=== PATIENT | male | born 1955 | race Caucasian/White ===

== ENCOUNTER 2017-07-13 10:04 | Emergency (ER) | payer MEDICARE, MEDICAID ==
[2017-07-13] MEDS: predniSONE 20 MG TAB PO (11:03)
[2017-07-13] MEDS: ALBUTEROL 0.083% (NEB) 2.5 MG/3 ML AMP NEB (11:09)
[2017-07-13] MEDS: IPRATROPIUM (NEB) 0.5 MG/2.5 ML AMP NEB (11:09)
[2017-07-13 11:16] LABS: ADD MAN DIFF? NO
[2017-07-13 11:25] LABS: BASOPHIL # 0.1 10^3/ul (0.0-0.1); BASOPHILS % 0.7 % (0.0-2.0); EOSINOPHILS # 0.2 10^3/ul (0.0-0.5); EOSINOPHILS % 3.1 % (0.0-7.0); HEMATOCRIT 50.9 % (42.0-52.0); HEMOGLOBIN 17.1 g/dl (14.0-18.0); LYMPHOCYTES # 1.5 10^3/ul (0.8-2.9); LYMPHOCYTES % 21.4 % (15.0-51.0); MEAN CORPUSCULAR HEMOGLOBIN 31.3 pg (29.0-33.0); MEAN CORPUSCULAR HGB CONC 33.6 g/dl (32.0-37.0); MEAN CORPUSCULAR VOLUME 93.1 fl (82.0-101.0); MEAN PLATELET VOLUME 11.3 fl (7.4-10.4); MONOCYTE # 0.7 10^3/ul (0.3-0.9); MONOCYTES % 9.6 % (0.0-11.0); NEUTROPHIL # 4.6 10^3/ul (1.6-7.5); NEUTROPHILS % 64.5 % (39.0-77.0); PLATELET COUNT 128 10^3/UL (140-415); RED BLOOD COUNT 5.47 10^6/ul (4.70-6.10); RED CELL DISTRIBUTION WIDTH 14.4 % (11.5-14.5)
[2017-07-13 11:25] LABS: WHITE BLOOD COUNT 7.2 10^3/ul (4.8-10.8)
[2017-07-13 13:16] LABS: ANION GAP 17 (8-16); BLOOD UREA NITROGEN 28 mg/dl (7-20); CALCIUM 9.1 mg/dl (8.4-10.2); CARBON DIOXIDE 26 mmol/L (21-31); CHLORIDE 104 mmol/L (97-110); CREATININE 1.68 mg/dl (0.61-1.24); GLUCOSE 140 mg/dl (70-220); POTASSIUM 4.7 mmol/L (3.5-5.1); SODIUM 142 mmol/L (135-144)
[2017-07-13 13:29] LABS: TROPONIN-I < 0.012 ng/ml (0.00-0.12)
== END 2017-07-13 13:05 | disposition home or self-care (01) ==
LOC: E/R 10:04
DX: J45.901 Unspecified asthma with (acute) exacerbation (principal); I25.10 Atherosclerotic heart disease of native coronary artery without angina pectoris; I10 Essential (primary) hypertension; E11.9 Type 2 diabetes mellitus without complications; F17.210 Nicotine dependence, cigarettes, uncomplicated; R05 Cough; Z79.4 Long term (current) use of insulin; Z79.82 Long term (current) use of aspirin
CPT/HCPCS: 36415; 71045; 80048; 84484; 85025; 93005; 94664; 99285-25

== ENCOUNTER 2018-04-19 15:17 | Emergency (ER) | payer MEDICARE, MEDICAID ==
[2018-04-19] MEDS: morphine 4 MG/ML VIAL IV (18:10)
[2018-04-19] MEDS: ONDANSETRON (ODT) 4 MG TAB ODT (18:10)
[2018-04-19] MEDS: SOD CHLORIDE 0.9% 1,000 ML IV (18:10)
[2018-04-19 18:11] LABS: ADD MAN DIFF? NO
[2018-04-19 18:13] LABS: WHITE BLOOD COUNT 9.2 10^3/ul (4.8-10.8)
[2018-04-19 18:13] LABS: BASOPHILS % 0.3 % (0.0-2.0); EOSINOPHILS # 0.1 10^3/ul (0.0-0.5); EOSINOPHILS % 1.3 % (0.0-7.0); HEMATOCRIT 50.9 % (42.0-52.0); HEMOGLOBIN 16.7 g/dl (14.0-18.0); LYMPHOCYTES # 1.5 10^3/ul (0.8-2.9); LYMPHOCYTES % 16.7 % (15.0-51.0); MEAN CORPUSCULAR HEMOGLOBIN 30.9 pg (29.0-33.0); MEAN CORPUSCULAR HGB CONC 32.8 g/dl (32.0-37.0); MEAN CORPUSCULAR VOLUME 94.3 fl (82.0-101.0); MEAN PLATELET VOLUME 10.5 fl (7.4-10.4); MONOCYTE # 0.8 10^3/ul (0.3-0.9); MONOCYTES % 8.5 % (0.0-11.0); NEUTROPHIL # 6.6 10^3/ul (1.6-7.5); NEUTROPHILS % 72.5 % (39.0-77.0); PLATELET COUNT 147 10^3/UL (140-415); RED CELL DISTRIBUTION WIDTH 15.1 % (11.5-14.5)
[2018-04-19 18:21] LABS: ADD UMIC YES; UR ASCORBIC ACID NEGATIVE (NEGATIVE); UR BACTERIA FEW /HPF (NONE SEEN); UR BILIRUBIN (Dip) NEGATIVE (NEGATIVE); UR BLOOD (Dip) NEGATIVE (NEGATIVE); UR CLARITY SLIGHTLY CLOUDY (CLEAR); UR COLOR YELLOW (YELLOW); UR GLUCOSE (Dip) 3+ mg/dL (NEGATIVE); UR KETONES (Dip) NEGATIVE (NEGATIVE); UR LEUKOCYTE ESTERASE (Dip) NEGATIVE Leu/ul (NEGATIVE); UR MUCUS FEW /HPF (NONE SEEN); UR NITRITE (Dip) NEGATIVE (NEGATIVE); UR RBC 1 /HPF (0-5); UR SPECIFIC GRAVITY (Dip) 1.027 (1.003-1.030); UR TOTAL PROTEIN (Dip) 3+ mg/dl (NEGATIVE); UR UROBILINOGEN (Dip) NEGATIVE (NEGATIVE); UR WBC 4 /HPF (0-5)
[2018-04-19 18:31] LABS: ALANINE AMINOTRANSFERASE 15 IU/L (13-69); ALBUMIN 4.2 g/dl (3.3-4.9); ALBUMIN/GLOBULIN RATIO 1.27; ALKALINE PHOSPHATASE 73 IU/L (42-121); ANION GAP 12 (5-13); ASPARTATE AMINO TRANSFERASE 21 IU/L (15-46); BILIRUBIN,INDIRECT 0.7 mg/dl (0-1.1); BILIRUBIN,TOTAL 0.7 mg/dl (0.2-1.3); BLOOD UREA NITROGEN 33 mg/dl (7-20); CALCIUM 9.4 mg/dl (8.4-10.2); CARBON DIOXIDE 26 mmol/L (21-31); CHLORIDE 102 mmol/L (97-110); CREATININE 2.09 mg/dl (0.61-1.24); Estimated GFR 32 mL/min (>60); GLUCOSE 129 mg/dl (70-220); POTASSIUM 4.7 mmol/L (3.5-5.1); SODIUM 140 mmol/L (135-144); TOTAL PROTEIN 7.5 g/dl (6.1-8.1)
[2018-04-19 18:38] LABS: PROTIME 14.4 Sec (11.9-14.9); PT RATIO 1.1
[2018-04-19] MEDS: APIXABAN 5 MG TABLET PO (20:33)
== END 2018-04-19 20:46 | disposition home or self-care (01) ==
LOC: FTE 15:17
DX: I82.402 Acute embolism and thrombosis of unspecified deep veins of left lower extremity (principal); I10 Essential (primary) hypertension; E11.9 Type 2 diabetes mellitus without complications; F17.210 Nicotine dependence, cigarettes, uncomplicated; Z79.82 Long term (current) use of aspirin; Z79.84 Long term (current) use of oral hypoglycemic drugs
CPT/HCPCS: 36415; 73562; 80053; 81001; 85025; 85610; 85730; 93971; 96374; 99285-25

== ENCOUNTER 2019-01-30 10:20 | Inpatient (IN) | payer MEDICARE, MEDICAID ==
[2019-01-30] MEDS: ALBUTEROL 0.083% (NEB) 2.5 MG/3 ML AMP HHN (10:37)
[2019-01-30] MEDS: IPRATROPIUM (NEB) 0.5 MG/2.5 ML AMP INH (10:37)
[2019-01-30] MEDS: SOD CHLORIDE 0.9% 1,000 ML IV (10:42)
[2019-01-30] MEDS: METHYLPREDNISOLONE 125 MG INJ IV (10:42)
[2019-01-30 11:11] LABS: ADD MAN DIFF? NO
[2019-01-30 11:15] LABS: BASOPHILS % 0.4 % (0.0-2.0); EOSINOPHILS # 0.1 10^3/ul (0.0-0.5); EOSINOPHILS % 1.4 % (0.0-7.0); HEMATOCRIT 58.4 % (42.0-52.0); HEMOGLOBIN 17.4 g/dl (14.0-18.0); LYMPHOCYTES # 1.2 10^3/ul (0.8-2.9); LYMPHOCYTES % 15.7 % (15.0-51.0); MEAN CORPUSCULAR HEMOGLOBIN 30.7 pg (29.0-33.0); MEAN CORPUSCULAR HGB CONC 29.8 g/dl (32.0-37.0); MEAN CORPUSCULAR VOLUME 103.2 fl (82.0-101.0); MEAN PLATELET VOLUME 10.7 fl (7.4-10.4); MONOCYTE # 0.7 10^3/ul (0.3-0.9); NEUTROPHIL # 5.8 10^3/ul (1.6-7.5); PLATELET COUNT 143 10^3/UL (140-415); RED BLOOD COUNT 5.66 10^6/ul (4.70-6.10); RED CELL DISTRIBUTION WIDTH 14.6 % (11.5-14.5)
[2019-01-30 11:15] LABS: WHITE BLOOD COUNT 7.9 10^3/ul (4.8-10.8)
[2019-01-30 11:35] LABS: INR 1.17; PT RATIO 1.2
[2019-01-30 11:40] LABS: ANION GAP 5 (5-13); BLOOD UREA NITROGEN 44 mg/dl (7-20); CARBON DIOXIDE 33 mmol/L (21-31); CHLORIDE 104 mmol/L (97-110); CREATININE 1.75 mg/dl (0.61-1.24); Estimated GFR 40 mL/min (>60); GLUCOSE 252 mg/dl (70-220); POTASSIUM 5.1 mmol/L (3.5-5.1); SODIUM 142 mmol/L (135-144)
[2019-01-30 11:52] LABS: TROPONIN-I 0.031 ng/ml (0.000-0.120)
[2019-01-30 12:00] LABS: AADO2 Arterial 41.4 mmHg (7.0-24.0); Arterial Base Excess -0.4 mmol/L (-3.0-3); Arterial Blood Gas Oxygen Sat 89.8 mmHG (95.0-98.0); Arterial COHb 1.2 % (0.0-3.0); Arterial Fraction of Oxyhgb 88.5 % (93.0-99.0); Arterial HCO3 30.9 mmol/L (22.0-26.0); Arterial MetHb 0.3 % (0.0-1.5); Arterial pCO2 80.4 mmhg (35-45); MODE NASAL CANNULA; Site LB
[2019-01-30] MEDS: IOHEXOL 100 ML (12:09)
[2019-01-30] MEDS: SOD CHLORIDE 0.9% 100 ML (12:09)
[2019-01-30] MEDS: ONDANSETRON 4 MG INJ IV (12:23)
[2019-01-30] MEDS: HYDROmorphONE 2 MG/ML SYG IV (12:23)
[2019-01-30] MEDS: FUROSEMIDE 40 MG INJ IV ×2 (12:30→13:52)
[2019-01-30] MEDS ORDERED: LORAZEPAM 2 MG INJ (12:37)
[2019-01-30] MEDS ORDERED: ONDANSETRON 4 MG INJ IV ×2 (13:00→13:30)
[2019-01-30] MEDS ORDERED: ACETAMINOPHEN 325 MG TAB PO ×2 (13:00→13:30)
[2019-01-30] MEDS ORDERED: GLUCAGON 1 MG INJ IM (13:30)
[2019-01-30] MEDS ORDERED: NITROGLYCERIN (SL) 0.4 MG TAB SL (13:30)
[2019-01-30] MEDS: FENTAnyl (DRIP) 1000 mcg/100mL 100 ML IV ×2 (13:30→18:48)
[2019-01-30] MEDS ORDERED: ALBUTEROL/IPRATROPIUM (NEB) 3 ML AMP HHN (13:30)
[2019-01-30] MEDS ORDERED: DEXTROSE 50% 50 ML SYRINGE IV ×2 (13:30)
[2019-01-30] MEDS ORDERED: HYDROCODONE/APAP (5/325) TAB PO (13:30)
[2019-01-30] MEDS ORDERED: hydrALAzine 20 MG INJ IV (13:30)
[2019-01-30] MEDS ORDERED: GLUCOSE GEL 15 GRAM TUBE PO ×2 (13:30)
[2019-01-30] MEDS ORDERED: MAGNESIUM HYDROXIDE 30ML CUP PO (13:30)
[2019-01-30] MEDS ORDERED: morphine 2 MG INJ IV (13:30)
[2019-01-30] MEDS ORDERED: GLUCOSE GEL 15 GRAM TUBE BUCCAL (13:30)
[2019-01-30] MEDS ORDERED: NACL 0.9% 3 ML SYG IV (13:30)
[2019-01-30] MEDS ORDERED: DOCUSATE SODIUM 100 MG CAP PO (13:30)
[2019-01-30] MEDS: PROPOFOL 100 ML IV ×3 (13:48→20:55)
[2019-01-30 13:49] LABS: INR 1.24; PROTIME 15.7 Sec (11.9-14.9); PT RATIO 1.2
[2019-01-30 13:50] LABS: CREATINE KINASE 34 IU/L (23-200); PARTIAL THROMBOPLASTIN TIME 28.3 Sec (23.0-35.0)
[2019-01-30] MEDS: LORAZEPAM 2 MG INJ IV ×2 (13:51→13:52)
[2019-01-30 14:00] LABS: ETHANOL < 10.0 mg/dl (0-0)
[2019-01-30 14:00] LABS: CK INDEX 4.7
[2019-01-30 14:04] LABS: TROPONIN-I 0.016 ng/ml (0.000-0.120)
[2019-01-30 14:10] LABS: AADO2 Arterial 403.8 mmHg (7.0-24.0); Allen Test ACCEPTAB; Arterial Base Excess -2.7 mmol/L (-3.0-3); Arterial Blood Gas Oxygen Sat 99.3 mmHG (95.0-98.0); Arterial COHb 1.1 % (0.0-3.0); Arterial Fraction of Oxyhgb 97.6 % (93.0-99.0); Arterial HCO3 26.4 mmol/L (22.0-26.0); Arterial MetHb 0.6 % (0.0-1.5); Arterial pCO2 63.1 mmhg (35-45); MODE VENT - AC; Site Right Radial
[2019-01-30] MEDS: ALBUTEROL/IPRATROPIUM (NEB) 3 ML AMP HHN ×2 (15:00→19:56)
[2019-01-30] MEDS: METHYLPREDNISOLONE 40 MG INJ IV ×2 (17:44→22:28)
[2019-01-30] MEDS: RIVAROXABAN 20 MG TABLET PO (18:32)
[2019-01-30] MEDS: INSULIN ASPART [NOVOLOG] 3 ML PEN SC ×2 (18:47→20:52)
[2019-01-30 20:00] LABS: CREATINE KINASE 55 IU/L (23-200)
[2019-01-30] MEDS ORDERED: ATROPINE 1 MG/10 ML SYRINGE (20:00)
[2019-01-30] MEDS ORDERED: SUCCINYLCHOLINE CHLORIDE 100 MG/5 ML SYG IV (20:00)
[2019-01-30 20:12] LABS: CK INDEX 6.9
[2019-01-30] MEDS: ATORVASTATIN 80 MG TAB PO (20:50)
[2019-01-30 20:55] LABS: AADO2 Arterial 173.5 mmHg (7.0-24.0); Allen Test ACCEPTAB; Arterial Base Excess 0.7 mmol/L (-3.0-3); Arterial Blood Gas Oxygen Sat 94.8 mmHG (95.0-98.0); Arterial COHb 1.1 % (0.0-3.0); Arterial Fraction of Oxyhgb 93.5 % (93.0-99.0); Arterial HCO3 24.7 mmol/L (22.0-26.0); Arterial MetHb 0.3 % (0.0-1.5); Arterial pCO2 38.1 mmhg (35-45); MODE VENT - AC; Site Left Radial
[2019-01-31] MEDS: INSULIN ASPART [NOVOLOG] 3 ML PEN SC ×6 (01:08→20:18)
[2019-01-31] MEDS: PROPOFOL 100 ML IV ×7 (01:10→21:44)
[2019-01-31] MEDS: ACCU-CHEK XX (01:10)
[2019-01-31 03:35] LABS: ADD MAN DIFF? NO
[2019-01-31 03:46] LABS: HEMOGLOBIN A1C 7.1 % (0-5.9)
[2019-01-31 03:52] LABS: CHOLESTEROL 162 mg/dl (100-200)
[2019-01-31 03:52] LABS: TRIGLYCERIDES 169 mg/dl (0-149)
[2019-01-31 03:53] LABS: CHOL/HDL RATIO 4.5 RATIO; HDL CHOLESTEROL 36 mg/dl (30-78); LDL CHOLESTEROL,CALCULATED 92 mg/dl
[2019-01-31 03:54] LABS: ANION GAP 3 (5-13); BLOOD UREA NITROGEN 45 mg/dl (7-20); CARBON DIOXIDE 30 mmol/L (21-31); CHLORIDE 106 mmol/L (97-110); CREATININE 1.69 mg/dl (0.61-1.24); Estimated GFR 41 mL/min (>60); GLUCOSE 288 mg/dl (70-220); MAGNESIUM 2.1 mg/dl (1.7-2.5); POTASSIUM 5.2 mmol/L (3.5-5.1); SODIUM 139 mmol/L (135-144)
[2019-01-31 04:03] LABS: BASOPHILS % 0.2 % (0.0-2.0); HEMATOCRIT 52.7 % (42.0-52.0); HEMOGLOBIN 16.6 g/dl (14.0-18.0); LYMPHOCYTES # 0.8 10^3/ul (0.8-2.9); LYMPHOCYTES % 13.6 % (15.0-51.0); MEAN CORPUSCULAR HEMOGLOBIN 30.6 pg (29.0-33.0); MEAN CORPUSCULAR HGB CONC 31.5 g/dl (32.0-37.0); MEAN CORPUSCULAR VOLUME 97.2 fl (82.0-101.0); MONOCYTE # 0.2 10^3/ul (0.3-0.9); NEUTROPHIL # 4.8 10^3/ul (1.6-7.5); NEUTROPHILS % 82.5 % (39.0-77.0); PLATELET COUNT 151 10^3/UL (140-415); RED BLOOD COUNT 5.42 10^6/ul (4.70-6.10); RED CELL DISTRIBUTION WIDTH 14.2 % (11.5-14.5)
[2019-01-31 04:03] LABS: WHITE BLOOD COUNT 5.8 10^3/ul (4.8-10.8)
[2019-01-31] MEDS: PANTOPRAZOLE 40 MG INJ IV (05:19)
[2019-01-31] MEDS: METHYLPREDNISOLONE 40 MG INJ IV ×3 (05:19→21:45)
[2019-01-31 07:28] LABS: AADO2 Arterial 227.2 mmHg (7.0-24.0); Allen Test ACCEPTAB; Arterial Base Excess 3.6 mmol/L (-3.0-3); Arterial Blood Gas Oxygen Sat 96.8 mmHG (95.0-98.0); Arterial COHb 0.5 % (0.0-3.0); Arterial Fraction of Oxyhgb 95.9 % (93.0-99.0); Arterial HCO3 27.7 mmol/L (22.0-26.0); Arterial MetHb 0.4 % (0.0-1.5); Arterial pCO2 39.9 mmhg (35-45); MODE VENT - AC; Site Right Radial
[2019-01-31] MEDS ORDERED: MAGNESIUM HYDROXIDE 30ML CUP NGT (08:00)
[2019-01-31] MEDS: IPRATROPIUM (HFA) 12.9 GM INHALER INH ×3 (08:29→19:20)
[2019-01-31] MEDS: ALBUTEROL HFA 8 GM INHALER INH ×3 (08:30→19:20)
[2019-01-31] MEDS ORDERED: NEBIVOLOL 5 MG TAB PO (09:00)
[2019-01-31 09:58] LABS: ADD MAN DIFF? NO
[2019-01-31 10:03] LABS: BASOPHILS % 0.1 % (0.0-2.0); HEMATOCRIT 52.8 % (42.0-52.0); HEMOGLOBIN 16.6 g/dl (14.0-18.0); LYMPHOCYTES # 0.8 10^3/ul (0.8-2.9); LYMPHOCYTES % 9.8 % (15.0-51.0); MEAN CORPUSCULAR HEMOGLOBIN 30.2 pg (29.0-33.0); MEAN CORPUSCULAR HGB CONC 31.4 g/dl (32.0-37.0); MEAN CORPUSCULAR VOLUME 96.2 fl (82.0-101.0); MEAN PLATELET VOLUME 11.4 fl (7.4-10.4); MONOCYTE # 0.3 10^3/ul (0.3-0.9); NEUTROPHIL # 6.8 10^3/ul (1.6-7.5); NEUTROPHILS % 85.5 % (39.0-77.0); PLATELET COUNT 147 10^3/UL (140-415); RED BLOOD COUNT 5.49 10^6/ul (4.70-6.10); RED CELL DISTRIBUTION WIDTH 14.2 % (11.5-14.5)
[2019-01-31 10:03] LABS: WHITE BLOOD COUNT 7.9 10^3/ul (4.8-10.8)
[2019-01-31 10:23] LABS: INR 1.61; PARTIAL THROMBOPLASTIN TIME 27.6 Sec (23.0-35.0); PROTIME 19.2 Sec (11.9-14.9); PT RATIO 1.5
[2019-01-31] MEDS: NEBIVOLOL 5 MG TAB NGT (10:58)
[2019-01-31] MEDS: DOCUSATE SODIUM 10 MG/ML (10ML CUP) NGT (10:59)
[2019-01-31] MEDS: LEVOFLOXACIN 750MG/D5W (PMX) 150 ML IVPB (10:59)
[2019-01-31] MEDS: NA POLYST SULFON 15 GM/60 ML BTL NGT (10:59)
[2019-01-31] MEDS: FUROSEMIDE 40 MG INJ IV (10:59)
[2019-01-31] MEDS: HEPARIN 25000 UNITS/250 ML 250 ML IV (11:06)
[2019-01-31] MEDS: LIDOCAINE 1% (MPF) 5 ML VIAL SC (11:30)
[2019-01-31] MEDS ORDERED: ACETAMINOPHEN 325 MG TAB NGT (13:30)
[2019-01-31] MEDS: ASPIRIN 81 MG TAB NGT (14:15)
[2019-01-31] MEDS: FENTAnyl (DRIP) 1000 mcg/100mL 100 ML IV (14:18)
[2019-01-31] MEDS ORDERED: RIVAROXABAN 20 MG TABLET NGT (17:35)
[2019-01-31] MEDS: HEPARIN 1000 UNITS/ML 10 ML INJ IV (18:11)
[2019-01-31] MEDS ORDERED: INSULIN GLARGINE [LANTus] (100 UNITS/ML) SYG SC (20:00)
[2019-01-31] MEDS: ATORVASTATIN 80 MG TAB NGT (20:13)
[2019-01-31] MEDS: INSULIN GLARGINE [LANTus] (100 UNITS/ML) SYG SC (20:15)
[2019-02-01] MEDS: INSULIN ASPART [NOVOLOG] 3 ML PEN SC ×6 (00:44→20:26)
[2019-02-01] MEDS: ACCU-CHEK XX (02:00)
[2019-02-01] MEDS: IPRATROPIUM (HFA) 12.9 GM INHALER INH ×2 (02:30→07:59)
[2019-02-01] MEDS: ALBUTEROL HFA 8 GM INHALER INH ×2 (02:31→08:00)
[2019-02-01] MEDS: PROPOFOL 100 ML IV ×2 (03:17→07:20)
[2019-02-01] MEDS: PANTOPRAZOLE 40 MG INJ IV (05:16)
[2019-02-01] MEDS: METHYLPREDNISOLONE 40 MG INJ IV ×3 (05:16→21:48)
[2019-02-01] MEDS: HEPARIN 25000 UNITS/250 ML 250 ML IV (07:17)
[2019-02-01 07:25] LABS: AADO2 Arterial 118.4 mmHg (7.0-24.0); Allen Test ACCEPTAB; Arterial Base Excess 1.2 mmol/L (-3.0-3); Arterial Blood Gas Oxygen Sat 96.4 mmHG (95.0-98.0); Arterial HCO3 25.7 mmol/L (22.0-26.0); Arterial MetHb 0.5 % (0.0-1.5); Arterial pCO2 40.1 mmhg (35-45); MODE VENT - AC; Site Right Radial
[2019-02-01 07:32] LABS: ADD MAN DIFF? NO
[2019-02-01 07:35] LABS: WHITE BLOOD COUNT 9.6 10^3/ul (4.8-10.8)
[2019-02-01 07:35] LABS: BASOPHILS % 0.1 % (0.0-2.0); EOSINOPHILS % 0.1 % (0.0-7.0); HEMOGLOBIN 16.2 g/dl (14.0-18.0); LYMPHOCYTES # 0.7 10^3/ul (0.8-2.9); LYMPHOCYTES % 7.5 % (15.0-51.0); MEAN CORPUSCULAR HEMOGLOBIN 30.6 pg (29.0-33.0); MEAN CORPUSCULAR HGB CONC 31.8 g/dl (32.0-37.0); MEAN CORPUSCULAR VOLUME 96.2 fl (82.0-101.0); MEAN PLATELET VOLUME 11.4 fl (7.4-10.4); MONOCYTE # 0.5 10^3/ul (0.3-0.9); MONOCYTES % 4.7 % (0.0-11.0); NEUTROPHIL # 8.3 10^3/ul (1.6-7.5); NEUTROPHILS % 86.9 % (39.0-77.0); PLATELET COUNT 156 10^3/UL (140-415); RED CELL DISTRIBUTION WIDTH 14.4 % (11.5-14.5)
[2019-02-01 08:03] LABS: ANION GAP 7 (5-13); BLOOD UREA NITROGEN 56 mg/dl (7-20); CALCIUM 8.9 mg/dl (8.4-10.2); CARBON DIOXIDE 30 mmol/L (21-31); CHLORIDE 103 mmol/L (97-110); CREATININE 2.06 mg/dl (0.61-1.24); Estimated GFR 33 mL/min (>60); GLUCOSE 247 mg/dl (70-220); POTASSIUM 4.5 mmol/L (3.5-5.1); SODIUM 140 mmol/L (135-144)
[2019-02-01] MEDS: ASPIRIN 81 MG TAB NGT (08:50)
[2019-02-01] MEDS: NEBIVOLOL 5 MG TAB NGT (08:50)
[2019-02-01] MEDS: FUROSEMIDE 40 MG INJ IV (08:50)
[2019-02-01] MEDS ORDERED: FENTAnyl (DRIP) 1000 mcg/100mL 100 ML IV (09:30)
[2019-02-01 10:19] LABS: AADO2 Arterial 114.3 mmHg (7.0-24.0); Allen Test ACCEPTAB; Arterial Base Excess 2.7 mmol/L (-3.0-3); Arterial Blood Gas Oxygen Sat 95.5 mmHG (95.0-98.0); Arterial COHb 0.3 % (0.0-3.0); Arterial Fraction of Oxyhgb 94.6 % (93.0-99.0); Arterial HCO3 28.6 mmol/L (22.0-26.0); Arterial MetHb 0.6 % (0.0-1.5); Arterial pCO2 47.7 mmhg (35-45); Blood Gas PS 10; MODE VENT - CPAP; Site Right Radial
[2019-02-01] MEDS ORDERED: ACETAMINOPHEN 325 MG TAB PO (13:30)
[2019-02-01 14:57] LABS: HEMATOCRIT 56.2 % (42.0-52.0); HEMOGLOBIN 17.7 g/dl (14.0-18.0)
[2019-02-01 15:18] LABS: PARTIAL THROMBOPLASTIN TIME 53.4 Sec (23.0-35.0)
[2019-02-01 17:49] LABS: ADD UMIC YES; UR ASCORBIC ACID NEGATIVE (NEGATIVE); UR BILIRUBIN (Dip) NEGATIVE (NEGATIVE); UR BLOOD (Dip) 3+ mg/dL (NEGATIVE); UR CLARITY CLOUDY (CLEAR); UR COLOR RED (YELLOW); UR GLUCOSE (Dip) NEGATIVE (NEGATIVE); UR KETONES (Dip) NEGATIVE (NEGATIVE); UR LEUKOCYTE ESTERASE (Dip) NEGATIVE Leu/ul (NEGATIVE); UR NITRITE (Dip) NEGATIVE (NEGATIVE); UR RBC > 182 /HPF (0-5); UR TOTAL PROTEIN (Dip) 2+ mg/dl (NEGATIVE); UR UROBILINOGEN (Dip) NEGATIVE (NEGATIVE); UR WBC 4 /HPF (0-5)
[2019-02-01 18:07] LABS: CREATININE,URINE RANDOM 47.43 mg/dl (20-370); PROTEIN/CREAT RATIO 2.04 RATIO
[2019-02-01] MEDS: DOCUSATE SODIUM 100 MG CAP PO (18:43)
[2019-02-01] MEDS: MAGNESIUM HYDROXIDE 30ML CUP PO (18:43)
[2019-02-01] MEDS: ATORVASTATIN 80 MG TAB PO (20:23)
[2019-02-01] MEDS: INSULIN GLARGINE [LANTus] (100 UNITS/ML) SYG SC (20:24)
[2019-02-01 23:13] LABS: PARTIAL THROMBOPLASTIN TIME 63.6 Sec (23.0-35.0)
[2019-02-02] MEDS: LORAZEPAM 2 MG INJ IV (00:16)
[2019-02-02] MEDS: HEPARIN 25000 UNITS/250 ML 250 ML IV ×2 (00:24→16:32)
[2019-02-02] MEDS ORDERED: PHENYLephrine 20MG IN 250 ML 250 ML IV (01:30)
[2019-02-02] MEDS: INSULIN ASPART [NOVOLOG] 3 ML PEN SC ×6 (02:13→22:00)
[2019-02-02 05:06] LABS: ADD MAN DIFF? NO
[2019-02-02 05:10] LABS: WHITE BLOOD COUNT 9.9 10^3/ul (4.8-10.8)
[2019-02-02 05:10] LABS: HEMATOCRIT 52.9 % (42.0-52.0); HEMOGLOBIN 16.8 g/dl (14.0-18.0); LYMPHOCYTES # 0.9 10^3/ul (0.8-2.9); LYMPHOCYTES % 8.9 % (15.0-51.0); MEAN CORPUSCULAR HEMOGLOBIN 30.3 pg (29.0-33.0); MEAN CORPUSCULAR HGB CONC 31.8 g/dl (32.0-37.0); MEAN CORPUSCULAR VOLUME 95.3 fl (82.0-101.0); MEAN PLATELET VOLUME 12.1 fl (7.4-10.4); MONOCYTE # 0.6 10^3/ul (0.3-0.9); MONOCYTES % 5.8 % (0.0-11.0); NEUTROPHIL # 8.4 10^3/ul (1.6-7.5); NEUTROPHILS % 84.7 % (39.0-77.0); PLATELET COUNT 171 10^3/UL (140-415); RED BLOOD COUNT 5.55 10^6/ul (4.70-6.10); RED CELL DISTRIBUTION WIDTH 14.5 % (11.5-14.5)
[2019-02-02] MEDS: METHYLPREDNISOLONE 40 MG INJ IV ×2 (05:36→21:00)
[2019-02-02] MEDS: PANTOPRAZOLE (EC) 40 MG TAB PO (05:36)
[2019-02-02 05:49] LABS: CREATINE KINASE 59 IU/L (23-200)
[2019-02-02 05:50] LABS: CK INDEX 3.2; CK-MB 1.89 ng/ml (0.0-2.4)
[2019-02-02] MEDS ORDERED: LANSOPRAZOLE 30 MG CAP NGT (06:00)
[2019-02-02 06:21] LABS: ANION GAP 8 (5-13); BLOOD UREA NITROGEN 54 mg/dl (7-20); CALCIUM 9.2 mg/dl (8.4-10.2); CARBON DIOXIDE 32 mmol/L (21-31); CHLORIDE 103 mmol/L (97-110); Estimated GFR 38 mL/min (>60); GLUCOSE 152 mg/dl (70-220); POTASSIUM 4.5 mmol/L (3.5-5.1); SODIUM 143 mmol/L (135-144)
[2019-02-02 08:29] LABS: PARTIAL THROMBOPLASTIN TIME 83.4 Sec (23.0-35.0)
[2019-02-02] MEDS: FUROSEMIDE 40 MG INJ IV (09:00)
[2019-02-02] MEDS: LEVOFLOXACIN 750MG/D5W (PMX) 150 ML IVPB (09:01)
[2019-02-02] MEDS: ASPIRIN 81 MG TAB PO (09:01)
[2019-02-02] MEDS: NEBIVOLOL 5 MG TAB PO (09:01)
[2019-02-02 15:34] LABS: PARTIAL THROMBOPLASTIN TIME 84.6 Sec (23.0-35.0)
[2019-02-02] MEDS: INSULIN GLARGINE [LANTus] (100 UNITS/ML) SYG SC (20:00)
[2019-02-02] MEDS: ATORVASTATIN 80 MG TAB PO (21:00)
[2019-02-02] MEDS: ZOLPIDEM 5 MG TAB PO (23:29)
[2019-02-03 02:35] LABS: ADD MAN DIFF? NO
[2019-02-03 02:38] LABS: WHITE BLOOD COUNT 9.8 10^3/ul (4.8-10.8)
[2019-02-03 02:38] LABS: BASOPHILS % 0.1 % (0.0-2.0); EOSINOPHILS % 0.2 % (0.0-7.0); HEMATOCRIT 53.4 % (42.0-52.0); HEMOGLOBIN 16.4 g/dl (14.0-18.0); LYMPHOCYTES # 0.8 10^3/ul (0.8-2.9); LYMPHOCYTES % 8.3 % (15.0-51.0); MEAN CORPUSCULAR HEMOGLOBIN 29.9 pg (29.0-33.0); MEAN CORPUSCULAR HGB CONC 30.7 g/dl (32.0-37.0); MEAN CORPUSCULAR VOLUME 97.4 fl (82.0-101.0); MEAN PLATELET VOLUME 11.5 fl (7.4-10.4); MONOCYTE # 0.5 10^3/ul (0.3-0.9); MONOCYTES % 5.1 % (0.0-11.0); NEUTROPHIL # 8.4 10^3/ul (1.6-7.5); NEUTROPHILS % 85.7 % (39.0-77.0); PLATELET COUNT 113 10^3/UL (140-415); RED BLOOD COUNT 5.48 10^6/ul (4.70-6.10); RED CELL DISTRIBUTION WIDTH 14.2 % (11.5-14.5)
[2019-02-03] MEDS: INSULIN ASPART [NOVOLOG] 3 ML PEN SC ×5 (02:53→17:50)
[2019-02-03 03:03] LABS: PARTIAL THROMBOPLASTIN TIME 72.2 Sec (23.0-35.0)
[2019-02-03 03:47] LABS: ANION GAP 8 (5-13); BLOOD UREA NITROGEN 55 mg/dl (7-20); CALCIUM 8.8 mg/dl (8.4-10.2); CARBON DIOXIDE 32 mmol/L (21-31); CHLORIDE 99 mmol/L (97-110); CREATININE 1.71 mg/dl (0.61-1.24); Estimated GFR 41 mL/min (>60); GLUCOSE 256 mg/dl (70-220); POTASSIUM 4.2 mmol/L (3.5-5.1); SODIUM 139 mmol/L (135-144)
[2019-02-03] MEDS: PANTOPRAZOLE (EC) 40 MG TAB PO (06:02)
[2019-02-03] MEDS: FUROSEMIDE 40 MG INJ IV (08:51)
[2019-02-03] MEDS: ASPIRIN 81 MG TAB PO (08:52)
[2019-02-03] MEDS: METHYLPREDNISOLONE 40 MG INJ IV (08:52)
[2019-02-03] MEDS: NEBIVOLOL 5 MG TAB PO (08:53)
[2019-02-03 11:26] LABS: PARTIAL THROMBOPLASTIN TIME 63.1 Sec (23.0-35.0)
[2019-02-03] MEDS: HEPARIN 25000 UNITS/250 ML 250 ML IV (11:51)
[2019-02-04] MEDS ORDERED: LEVOFLOXACIN 750 MG TABLET PO (09:00)
[2019-02-04] MEDS ORDERED: CLOPIDOGREL 75 MG TAB PO (09:00)
== END 2019-02-03 19:38 | disposition home health service (06) | DRG 208 ==
LOC: 6WM 02-02 19:15 → E/R 10:20 → ICU 12:33
PROVIDERS: Hospitalist
PROC: 5A1945Z Respiratory Ventilation, 24-96 Consecutive Hours (ICD-10-PCS; principal; 2019-01-30)
PROC: 0BH17EZ Insertion of Endotracheal Airway into Trachea, Via Natural or Artificial Opening (ICD-10-PCS; 2019-01-30)
PROC: 05HY33Z Insertion of Infusion Device into Upper Vein, Percutaneous Approach (ICD-10-PCS; 2019-01-31)
DX: J96.01 Acute respiratory failure with hypoxia (principal); I21.4 Non-ST elevation (NSTEMI) myocardial infarction; J44.1 Chronic obstructive pulmonary disease with (acute) exacerbation; N17.9 Acute kidney failure, unspecified; I13.0 Hypertensive heart and chronic kidney disease with heart failure and stage 1 through stage 4 chronic kidney disease, or unspecified chronic kidney disease; J96.02 Acute respiratory failure with hypercapnia; E11.22 Type 2 diabetes mellitus with diabetic chronic kidney disease; N18.9 Chronic kidney disease, unspecified; Z85.118 Personal history of other malignant neoplasm of bronchus and lung; I25.10 Atherosclerotic heart disease of native coronary artery without angina pectoris; I25.2 Old myocardial infarction; E78.00 Pure hypercholesterolemia, unspecified; Z86.718 Personal history of other venous thrombosis and embolism; Z79.01 Long term (current) use of anticoagulants; Z90.2 Acquired absence of lung [part of]; I50.9 Heart failure, unspecified; I51.7 Cardiomegaly; Z86.73 Personal history of transient ischemic attack (TIA), and cerebral infarction without residual deficits; D69.6 Thrombocytopenia, unspecified; R31.9 Hematuria, unspecified; Z95.828 Presence of other vascular implants and grafts; E11.65 Type 2 diabetes mellitus with hyperglycemia
CPT/HCPCS: 31500; 36415; 36569; 36600; 70450; 71045; 71275; 76775; 76937; 80048; 80061; 80307; 81001; 81003; 82550; 82553; 82570; 82803; 82962; 83036; 83605; 83735; 84100; 84439; 84443; 84484; 85014; 85018; 85025; 85610; 85730; 87040-91; 87081; 92610; 93005; 93971; 94002; 94003; 94640; 94660; 94664; 94770; 96361; 96374; 96375; 97116; 97163; 97165; 97530; 97535; 99285-25